=== PATIENT | male | born 2000 | race Caucasian/White ===

== ENCOUNTER → 2020-11-29 18:11 | Outpatient (CLI) | payer OTHER, SELFPAY ==
[2020-11-29 19:04] LABS: COVID19 -Nasal RAPID Negative (Negative)
== END ==
PROVIDERS: Referring Provider Physician Assistant; Visit Provider Physician Assistant
DX: Z20.822 Contact with and (suspected) exposure to COVID-19 (principal); J02.9 Acute pharyngitis, unspecified; R53.83 Other fatigue
CPT/HCPCS: 87635